=== PATIENT | male | born 1990 | race American Indian/Alaskan Native ===

== ENCOUNTER 2017-01-09 12:19 | Emergency (ER) | payer OTHER ==
[2017-01-09 12:48] VITALS: BP 130/79
[2017-01-09] MEDS ORDERED: PROVENTIL IH ONE (13:25)
[2017-01-09 14:12] LABS: Basophils % (Auto) 0.5 % (0.0-1.8); Eosinophils % (Auto) 3.7 % (0.0-4.3); Hematocrit 45.9 % (35.5-45.6); Hemoglobin 15.7 gm/dl (11.8-15.2); Mean Corpuscular HGB Conc 34 % (32-34); Mean Corpuscular Hemoglobin 30 pg (28-32); Mean Corpuscular Volume 87 fl (84-94); Platelet Count 224 K/mm3 (140-440); Red Blood Count 5.27 M/mm3 (3.65-5.03); White Blood Count 7.3 K/mm3 (4.5-11.0)
[2017-01-09 14:13] LABS: Mucus,Urine FEW /HPF
[2017-01-09 14:14] LABS: Bilirubin,Urine NEG (Negative); Blood,Urine NEG (Negative); Ketones,Urine NEG (Negative); Leukocyte Esterase,Urine NEG (Negative); Nitrite,Urine NEG (Negative); Protein,Urine <15 mg/dL mg/dL (Negative); Urobilinogen,Urine < 2.0 mg/dL (<2.0)
[2017-01-09 14:16] LABS: WBC,Urine < 1.0 /HPF (0.0-6.0)
[2017-01-09 14:23] LABS: Partial Thromboplastin Time 31.4 Sec. (24.2-36.6)
--- NOTE | 2017-01-09 14:35 | Emergency Department Report ---
ED Shortness of Breath HPI - General Chief Complaint: Dyspnea/Respdistress Stated Complaint: ASTHMA Time Seen by Provider: 01/09/17 13:24 Source: patient Mode of arrival: Ambulatory Limitations: No Limitations - History of Present Illness Initial Comments: This is a 26-year-old male nontoxic, well nourished in appearance, no acute signs of distress presents to the ED with c/o of productive cough, shortness of breath, and chest pain and fever 2 days. Patient is grasp with that cough is yellow/green mucus production. He states he has chest pain and her coughing episode. Patient denies any recent travels, long car rides, recent hospital stays. Patient denies any calf pain or calf tenderness. Denies hemoptysis, headache, radiation of chest pain, stiff neck, difficulty breathing, nausea, vomiting, blurry vision. Patient allergies to sulfa. Past medical history includes asthma. Patient denies taking albuterol due to no refills. MD Complaint: shortness of breath, cough, chest pain -: days(s) (1) Severity: mild Pain Scale: 8 Quality: aching Consistency: constant Improves With: nothing Worsens With: coughing Known History Of: asthma Associated Symptoms: chest pain, cough, sputum production Treatments Prior to Arrival: none - Related Data Previous Rx's Medication Instructions Recorded Last Taken Type ALBUTEROL Inhaler [ProAir HFA 2 puff IH QID PRN #1 inhalation 01/09/17 Unknown Rx Inhaler] Azithromycin [Zithromax Z-TOMI] 250 mg PO DAILY #6 tablet 01/09/17 Unknown Rx Benzonatate [Tessalon Perle] 100 mg PO Q8H #15 capsule 01/09/17 Unknown Rx predniSONE [Deltasone] 20 mg PO BID #10 tab 01/09/17 Unknown Rx Allergies Allergy/AdvReac Type Severity Reaction Status Date / Time Sulfa (Sulfonamide AdvReac Itching Verified 01/09/17 12:49 Antibiotics) ED Review of Systems ROS: Stated complaint: ASTHMA Other details as noted in HPI Constitutional: denies: chills, fever Eyes: denies: eye pain, eye discharge, vision change ENT: denies: ear pain, throat pain Respiratory: cough, shortness of breath. denies: wheezing Cardiovascular: chest pain. denies: palpitations Endocrine: no symptoms reported Gastrointestinal: denies: abdominal pain, nausea, diarrhea Genitourinary: denies: urgency, dysuria Musculoskeletal: denies: back pain, joint swelling, arthralgia Skin: denies: rash, lesions Neurological: denies: headache, weakness, paresthesias Psychiatric: denies: anxiety, depression Hematological/Lymphatic: denies: easy bleeding, easy bruising ED Past Medical Hx - Past Medical History Previous Medical History?: Yes Hx Asthma: Yes - Surgical History Past Surgical History?: No - Social History Smoking Status: Never Smoker Substance Use Type: Alcohol - Medications Home Medications: Home Medications Medication Instructions Recorded Confirmed Last Taken Type ALBUTEROL Inhaler [ProAir HFA 2 puff IH QID PRN #1 inhalation 01/09/17 Unknown Rx Inhaler] Azithromycin [Zithromax Z-TOMI] 250 mg PO DAILY #6 tablet 01/09/17 Unknown Rx Benzonatate [Tessalon Perle] 100 mg PO Q8H #15 capsule 01/09/17 Unknown Rx predniSONE [Deltasone] 20 mg PO BID #10 tab 01/09/17 Unknown Rx ED Physical Exam - General Limitations: No Limitations General appearance: alert, in no apparent distress - Head Head exam: Present: atraumatic, normocephalic, normal inspection - Eye Eye exam: Present: normal appearance, PERRL, EOMI. Absent: scleral icterus, conjunctival injection, nystagmus, periorbital swelling, periorbital tenderness Pupils: Present: normal accommodation - ENT ENT exam: Present: normal exam, normal orophraynx, mucous membranes moist, TM's normal bilaterally, normal external ear exam - Neck Neck exam: Present: normal inspection, full ROM. Absent: tenderness, meningismus, lymphadenopathy, thyromegaly - Respiratory Respiratory exam: Present: normal lung sounds bilaterally, chest wall tenderness (midsternum). Absent: respiratory distress, wheezes, rales, rhonchi , stridor, accessory muscle use, decreased breath sounds, prolonged expiratory - Cardiovascular Cardiovascular Exam: Present: regular rate, normal rhythm, normal heart sounds. Absent: irregular rhythm, systolic murmur, diastolic murmur, rubs, gallop - GI/Abdominal GI/Abdominal exam: Present: soft, normal bowel sounds. Absent: distended, tenderness, guarding, rebound, rigid, diminished bowel sounds - Rectal Rectal exam: Present: deferred - Extremities Exam Extremities exam: Present: normal inspection, full ROM, normal capillary refill. Absent: tenderness, pedal edema, joint swelling, calf tenderness - Back Exam Back exam: Present: normal inspection, full ROM. Absent: tenderness, CVA tenderness (R), CVA tenderness (L), muscle spasm, paraspinal tenderness, vertebral tenderness, rash noted - Neurological Exam Neurological exam: Present: alert, oriented X3, CN II-XII intact, normal gait, reflexes normal - Psychiatric Psychiatric exam: Present: normal affect, normal mood - Skin Skin exam: Present: warm, dry, intact, normal color. Absent: rash ED Course Vital Signs 01/09/17 12:45 Temperature 98.5 F Pulse Rate 106 H Respiratory 16 Rate Blood Pressure 130/79 O2 Sat by Pulse 97 Oximetry - Reevaluation(s) Reevaluation #1: 01/09/17 14:36 Patient is speaking in full sentences with no signs of distress noted. ED Medical Decision Making - Lab Data Result diagrams: 01/09/17 13:44 01/09/17 13:44 - EKG Data When compared to previous EKG there are: no significant change Interpretation: no acute changes, normal EKG 01/09/17 14:[address] abnormalities. Early repolarization. Non Stemi. - Medical Decision Making This 26-year-old male that presents with gastroenteritis, upper respiratory infection, and asthma exacerbation. Patient is stable and was examined by me. EKG obtained. Chest x-ray obtained and dictated by the radiologist with normal examination. CBC, CMP, troponin, d-dimer, cardiac CK, UA obtained with normal limits. Patient received DuoNeb and 125 mg of Solu-Medrol IM regurgitation symptoms of shortness of breath has improved and subsided. Patient is requesting for refill of albuterol. Patient is discharged with Z-Tomi, prednisone, albuterol, and Tessalon Perles. Patient was instructed Follow-up with a primary care doctor in 3-5 days or if symptoms worsen and continue return to emergency room as soon as possible. At time time of discharge, the patient does not seem toxic or ill in appearance. No acute signs of distress noted. Patient agrees to discharge treatment plan of care. No further questions noted by the patient. Critical care attestation.: If time is entered above; I have spent that time in minutes in the direct care of this critically ill patient, excluding procedure time. ED Disposition Clinical Impression: Costochondritis Upper respiratory infection Qualifiers: URI type: unspecified URI Qualified Code(s): J06.9 - Acute upper respiratory infection, unspecified Asthma exacerbation Qualifiers: Asthma severity: mild Asthma persistence: intermittent Qualified Code(s): J45.21 - Mild intermittent asthma with (acute) exacerbation Disposition: TO HOME OR SELFCARE Is pt being admited?: No Does the pt Need Aspirin: No Condition: Stable Instructions: Benzonatate (By mouth), Albuterol (By breathing), Prednisone (By mouth), Azithromycin (By mouth), Asthma (ED), Costochondritis (ED), Upper Respiratory Infection (ED) Additional Instructions: Follow-up with a primary care doctor in 3-5 days or if symptoms worsen and continue return to emergency room as soon as possible. Prescriptions: ALBUTEROL Inhaler [ProAir HFA Inhaler] 2 puff IH QID PRN #1 inhalation PRN Reason: Shortness Of Breath Azithromycin [Zithromax Z-TOMI] 250 mg PO DAILY #6 tablet Benzonatate [Tessalon Perle] 100 mg PO Q8H #15 capsule predniSONE [Deltasone] 20 mg PO BID #10 tab Referrals: PRIMARY CARE, [Primary Care Provider] - 3-5 Days MEMO LILLY MD [Staff Physician] - 3-5 Days [facility] [Outside] - 3-5 Days [facility] [place] [Outside] - 3-5 Days Forms: Work/School Release Form(ED)
[2017-01-09 14:58] LABS: Creatine Kinase MB 1.3 ng/mL (0.0-4.0)
[2017-01-09 15:03] LABS: Alanine Aminotransferase 26 units/L (7-56); Albumin/Globulin Ratio 1.1 %; Alkaline Phosphatase 45 units/L (35-129); Anion Gap 17 mmol/L; BUN/Creatinine Ratio 10; Blood Urea Nitrogen 10 mg/dL (9-20); Calcium 9.2 mg/dL (8.4-10.2); Carbon Dioxide 28 mmol/L (22-30); Chloride 100.6 mmol/L (98-107); Creatine Kinase 135 units/L (55-170); Glucose 74 mg/dL (75-100); Potassium 3.8 mmol/L (3.6-5.0); Sodium 142 mmol/L (137-145); Total Protein 7.6 g/dL (6.3-8.2)
--- NOTE | 2017-01-09 15:17 | XRay Report ---
FINAL REPORT EXAM: XR CHEST ROUTINE 2V HISTORY: cp TECHNIQUE: PA and lateral chest radiographs PRIORS: None. FINDINGS: No mediastinal shift. Cardiac silhouette is not enlarged. No pneumothorax, effusion, or focal pulmonary opacity. No acute skeletal finding. IMPRESSION: No focal pulmonary opacity.
== END 2017-01-09 16:34 | disposition home or self-care (01) ==
LOC: ED 12:19
DX: M94.0 Chondrocostal junction syndrome [Tietze] (principal); J45.901 Unspecified asthma with (acute) exacerbation; J06.9 Acute upper respiratory infection, unspecified; Z88.1 Allergy status to other antibiotic agents
CPT/HCPCS: 36415; 71020; 80053; 81001; 82550; 82553; 83880; 84484; 85025; 85379; 85610; 85730; 93005; 93010; 96372; 99284; J2930

== ENCOUNTER 2017-08-27 14:47 | Emergency (ER) | payer OTHER | END 2017-08-27 16:53 | disposition left against medical advice (07) | LOC: ED 14:47 | DX: M54.9 Dorsalgia, unspecified (principal); Z53.21 Procedure and treatment not carried out due to patient leaving prior to being seen by health care provider ==

== ENCOUNTER 2018-04-20 04:16 | Emergency (ER) | payer OTHER ==
--- NOTE | 2018-04-20 04:45 | Emergency Department Report ---
Minor Respiratory - HPI Chief Complaint: Upper Respiratory Infection Stated Complaint: CHILLS/COUGH/BODY PAIN Time Seen by Provider: 04/20/18 04:40 Duration: 2 Days Pain Location: Throat, Other (cough) Minor Respiratory: Yes Sore Throat, Yes Able to Tolerate Fluids, Yes Cough, Yes Sick Contacts, Yes Fever, No Rhinorrhea, No Ear Pain, No Hemoptysis, No Chest Pain, No Shortness of Breath Other History: 28-year-old -Serbian male presents to the emergency room for cough fever chills and body aches for 2 days. Patient reports that he's had cough for 2 days and fever and body aches Tuesday evening. Patient admits to nasal congestion and sneezing and dry cough. He denies Raynaud's watery eyes. Patient reports a past medical history of asthma patient does not have a primary care provider. ED Review of Systems ROS: Stated complaint: CHILLS/COUGH/BODY PAIN Other details as noted in HPI Comment: All other systems reviewed and negative ENT: congestion, other (sneezing) Respiratory: cough Cardiovascular: denies: chest pain, palpitations Gastrointestinal: denies: abdominal pain, nausea, diarrhea Genitourinary: denies: urgency, dysuria Musculoskeletal: denies: back pain, joint swelling, arthralgia Skin: denies: rash, lesions Neurological: denies: headache, weakness, paresthesias Psychiatric: denies: anxiety, depression Hematological/Lymphatic: denies: easy bleeding, easy bruising ED Past Medical Hx - Past Medical History Previous Medical History?: Yes Hx Asthma: Yes - Surgical History Past Surgical History?: No - Social History Smoking Status: Current Every Day Smoker Substance Use Type: None - Medications Home Medications: Home Medications Medication Instructions Recorded Confirmed Last Taken Type ALBUTEROL Inhaler (OR & NICU) 2 puff IH QID PRN #1 inhalation 01/09/17 Unknown Rx [ProAir HFA Inhaler] Azithromycin [Zithromax Z-TOMI] 250 mg PO DAILY #6 tablet 01/09/17 Unknown Rx predniSONE [Deltasone] 20 mg PO BID #10 tab 01/09/17 Unknown Rx Benzonatate [Tessalon Perle] 100 mg PO Q8H #15 capsule 04/20/18 Unknown Rx Cetirizine HCl [ZyrTEC] 10 mg PO QDAY #30 capsule 04/20/18 Unknown Rx Minor Respiratory Exam - Exam General: Vital signs noted. No distress. Alert and acting appropriately. HEENT: Yes Pharyngeal Erythema, Yes Moist Mucous Membranes, No Pharyngeal Ex udates, No Rhinorrhea, No Conjuctival Injection, No Frontal Tenderness, No Maxillary Tenderness Ear: Neither TM Bulge, Neither TM Erythema, Neither EAC Pain, Neither EAC Disch arge Neck: Yes Supple, No Adenopathy Lungs: Yes Good Air Exchange, No Wheezes, No Ronchi, No Stridor, No Cough, No Labored Respirations, No Retractions, No Use of Accessory Muscles, No Other Abnormal Lung Sounds Heart: Yes Regular Abdomen: No Tenderness Skin: Yes Rash (hyperpigmented skin between the legs. Erythematous non- edematous no tenderness to palpate) Neurologic: Alert and oriented, no deficits. Musculoskeletal: Unremarkable. ED Course Vital Signs 04/20/18 04:22 Temperature 99.6 F Pulse Rate 88 Respiratory 20 Rate Blood Pressure 140/78 O2 Sat by Pulse 97 Oximetry ED Medical Decision Making - Medical Decision Making Patient has been evaluated by this provider In [facility]. Discussed the patient I'll place him on antihistamines and Tessalon Perles. Discussed the patient's increase his fluid intake take Tylenol or Motrin for body aches and follow-up with the primary care provider if his symptoms persist or gets worse. Critical care attestation.: If time is entered above; I have spent that time in minutes in the direct care of this critically ill patient, excluding procedure time. ED Disposition Clinical Impression: Allergic rhinitis Qualifiers: Allergic rhinitis trigger: unspecified Allergic rhinitis seasonality: unspecified Qualified Code(s): J30.9 - Allergic rhinitis, unspecified Disposition: DC-01 TO HOME OR SELFCARE Is pt being admited?: No Does the pt Need Aspirin: No Condition: Stable Instructions: Allergic Rhinitis (ED), Viral Syndrome (ED) Additional Instructions: Please take medication as prescribed. Please increase her water intake. Tylenol or Motrin for fever. If his symptoms persist or gets worse please follow up with a primary care provider. Prescriptions: Benzonatate [Tessalon Perle] 100 mg PO Q8H #15 capsule Cetirizine HCl [ZyrTEC] 10 mg PO QDAY #30 capsule Referrals: [facility] [Provider Group] - 3-5 Days Forms: Work/School Release Form(ED)
== END 2018-04-20 04:57 | disposition home or self-care (01) ==
LOC: ED 04:16
CPT/HCPCS: 99282

== ENCOUNTER 2021-08-09 20:13 | Emergency (ER) | payer OTHER ==
[2021-08-09 21:11] LABS: Basophils % (Auto) 0.4 % (0.0-1.8); Eosinophils # (Auto) 0.1 K/mm3 (0.0-0.4); Eosinophils % (Auto) 1.2 % (0.0-4.3); Hematocrit 47.8 % (35.5-45.6); Hemoglobin 15.1 gm/dl (11.8-15.2); Lymphocytes # (Auto) 1.5 K/mm3 (1.2-5.4); Lymphocytes % (Auto) 19.8 % (13.4-35.0); Mean Corpuscular HGB Conc 32 % (32-34); Mean Corpuscular Volume 89 fl (84-94); Monocytes # (Auto) 0.9 K/mm3 (0.0-0.8); Monocytes % (Auto) 11.9 % (0.0-7.3); Platelet Count 216 K/mm3 (140-440); Red Blood Count 5.38 M/mm3 (3.65-5.03); Red Cell Distribution Width 13.3 % (13.2-15.2)
[2021-08-09 21:31] LABS: Alanine Aminotransferase 26 units/L (7-56); Albumin 4.2 g/dL (3.9-5); BUN/Creatinine Ratio 7; Blood Urea Nitrogen 8 mg/dL (9-20); Calcium 9.4 mg/dL (8.4-10.2); Hemolysis Index 9
[2021-08-09 21:49] LABS: Mucus,Urine FEW /HPF; WBC,Urine < 1.0 /HPF (0.0-6.0)
[2021-08-09 22:13] LABS: Color,Urine Yellow (Yellow)
[2021-08-09 22:14] LABS: Bilirubin,Urine Negative (Negative); Blood,Urine Negative (Negative)
[2021-08-10 04:27] VITALS: BP 108/58
[2021-08-10] MEDS ORDERED: HYDROcodone/ACETAMINOPHEN 5-325 MG TAB PO STA (06:07)
--- NOTE | 2021-08-10 06:13 | Emergency Department Report ---
ED N/V/D HPI - General Chief complaint: Abdominal Pain Stated complaint: BLOODY STOOL/FEVER/DIARRHEA Time Seen by Provider: 08/10/21 01:41 Source: patient Mode of arrival: Ambulatory Limitations: No Limitations - History of Present Illness Initial comments: 31-year-old male presents [facility] complaining of a 2-day history of abdominal cramping associated with diarrhea of unknown etiology. Initially had a temperature of 101 with spontaneously resolved but the diarrhea and abdominal cramping did remain. MD complaint: nausea, vomiting, diarrhea -: Gradual Description of Vomiting: food contents, watery Associated Abdominal Pain: No Location: diffuse Radiation: none Severity: mild Quality: cramping Consistency: constant Improves with: none Worsens with: none Context: possible food poisoning Associated Symptoms: denies: chest pain, cough, diaphoresis, loss of appetite, malaise, nausea/vomiting, rash, syncope, weakness - Related Data Previous Rx's Medication Instructions Recorded Last Taken Type Azithromycin [Zithromax Z-TOMI] 250 mg PO DAILY #6 tablet 01/09/17 Unknown Rx predniSONE [Deltasone] 20 mg PO BID #10 tab 01/09/17 Unknown Rx Albuterol Mdi (or & Nicu Only) 2 puff IH QID PRN #1 inhalation 04/20/18 Unknown Rx [ProAir HFA Inhaler] Benzonatate [Tessalon Perle] 100 mg PO Q8H #15 capsule 04/20/18 Unknown Rx Cetirizine HCl [ZyrTEC] 10 mg PO QDAY #30 capsule 04/20/18 Unknown Rx Ciprofloxacin HCl 500 mg PO BID #10 08/10/21 Unknown Rx Hyoscyamine Subl [Levsin Sl 0.125 0.125 mg SL Q6HR PRN #20 tab 08/10/21 Unknown Rx TAB] Ondansetron [Zofran ODT TAB] 8 mg PO Q12HR #14 tab.rapdis 08/10/21 Unknown Rx Allergies Allergy/AdvReac Type Severity Reaction Status Date / Time Sulfa (Sulfonamide AdvReac Itching Verified 01/09/17 12:49 Antibiotics) ED Review of Systems ROS: Stated complaint: BLOODY STOOL/FEVER/DIARRHEA Other details as noted in HPI Comment: All other systems reviewed and negative ED Past Medical Hx - Past Medical History Hx Asthma: Yes - Social History Smoking Status: Current Every Day Smoker Substance Use Type: None - Medications Home Medications: Home Medications Medication Instructions Recorded Confirmed Last Taken Type Azithromycin [Zithromax Z-TOMI] 250 mg PO DAILY #6 tablet 01/09/17 Unknown Rx predniSONE [Deltasone] 20 mg PO BID #10 tab 01/09/17 Unknown Rx Albuterol Mdi (or & Nicu Only) 2 puff IH QID PRN #1 inhalation 04/20/18 Unknown Rx [ProAir HFA Inhaler] Benzonatate [Tessalon Perle] 100 mg PO Q8H #15 capsule 04/20/18 Unknown Rx Cetirizine HCl [ZyrTEC] 10 mg PO QDAY #30 capsule 04/20/18 Unknown Rx Ciprofloxacin HCl 500 mg PO BID #10 08/10/21 Unknown Rx Hyoscyamine Subl [Levsin Sl 0.125 0.125 mg SL Q6HR PRN #20 tab 08/10/21 Unknown Rx TAB] Ondansetron [Zofran ODT TAB] 8 mg PO Q12HR #14 tab.rapdis 08/10/21 Unknown Rx ED Physical Exam - General Limitations: No Limitations General appearance: alert, in no apparent distress - Head Head exam: Present: atraumatic, normocephalic - Eye Eye exam: Present: normal appearance, PERRL, EOMI - ENT ENT exam: Present: mucous membranes moist - Neck Neck exam: Present: normal inspection - Respiratory Respiratory exam: Present: normal lung sounds bilaterally. Absent: respiratory distress - Cardiovascular Cardiovascular Exam: Present: regular rate, normal rhythm. Absent: systolic murmur, diastolic murmur, rubs, gallop - GI/Abdominal GI/Abdominal exam: Present: soft, tenderness (Vague mild tenderness with deep palpation), normal bowel sounds - Rectal Rectal exam: Present: deferred - Extremities Exam Extremities exam: Present: normal inspection - Back Exam Back exam: Present: normal inspection - Neurological Exam Neurological exam: Present: alert, oriented X3 - Psychiatric Psychiatric exam: Present: normal affect, normal mood - Skin Skin exam: Present: warm, dry, intact, normal color. Absent: rash ED Course Vital Signs 08/09/21 08/10/21 08/10/21 20:19 02:34 04:26 Temperature 98.8 F Pulse Rate 79 128 H 60 Respiratory 18 16 18 Rate Blood Pressure 147/86 Blood Pressure 108/58 [Left] O2 Sat by Pulse 99 98 Oximetry ED Medical Decision Making - Lab Data Result diagrams: 08/09/21 20:49 08/09/21 20:57 - Medical Decision Making Patient presents to the emergency department with nausea, vomiting, diarrhea, differential diagnosis includes possible acute gastroenteritis. Abdominal examination without peritoneal signs. Currently patient is euvolemic without evidence of dehydration. No evidence of surgical abdomen or other acute medical emergency including bowel obstruction, viscus perforation, vascular catastrophe, appendicitis, cholecystitis at this time. Presentation not consistent with other acute emergent causes of vomiting and diarrhea at this time. No indication for abdominal imaging Plan supportive care, oral/IV rehydration, antiemetics and reassess Critical care attestation.: If time is entered above; I have spent that time in minutes in the direct care of this critically ill patient, excluding procedure time. ED Disposition Clinical Impression: Nausea vomiting and diarrhea Disposition: HOME / SELF CARE / HOMELESS Is pt being admited?: No Does the pt Need Aspirin: No Condition: Stable Instructions: Food Choices to Help Relieve Diarrhea, Adult, Rotavirus Infection, Adult, Nausea and Vomiting, Adult, [id number], Diarrhea, Adult, [id number], Bloody Diarrhea Prescriptions: Ciprofloxacin HCl 500 mg PO BID #10 Hyoscyamine Subl [Levsin Sl 0.125 TAB] 0.125 mg SL Q6HR PRN #20 tab PRN Reason: abdominal cramps and spasms Ondansetron [Zofran ODT TAB] 8 mg PO Q12HR #14 tab.loudis Referrals: VAN RILEY MD [Primary Care Provider] - 3-5 Days
== END 2021-08-10 06:37 | disposition home or self-care (01) ==
LOC: ED 20:13
DX: R11.2 Nausea with vomiting, unspecified (principal); R19.7 Diarrhea, unspecified; J45.909 Unspecified asthma, uncomplicated; F17.200 Nicotine dependence, unspecified, uncomplicated; Z88.1 Allergy status to other antibiotic agents; Z79.899 Other long term (current) drug therapy
CPT/HCPCS: 36415; 80053; 81001; 83690; 85025; 99283